=== PATIENT | female | born 1980 ===

== ENCOUNTER 2017-01-19 18:03 | Emergency (ER) | payer OTHER ==
[2017-01-19 18:29] VITALS: BP 127/82; PULSE 90; RESP 16; TEMP 98.2; O2SAT 100
--- NOTE | 2017-01-19 18:55 | ED PDOC ---
HPI: Head Injury Time Seen by Provider: 01/19/17 18:37 Chief Complaint (Nursing): Trauma Chief Complaint (Provider): Head injury History Per: Patient History/Exam Limitations: no limitations Injury Occurred (Timing): Hours Ago: (1) Onset/Duration Of Symptoms: Hrs (1) Patient States: Fell Striking Head Additional Complaint(s): The patient is a 36yo female, no pertinent past medical history, presents to the ED for evaluation of head injury sustained an hour prior to arrival. Patient reports she was on a ladder attempting to put something away and fell backwards, hitting the back of her head against a wall. Patient reports pain to the area of injury but denies loss of consciousness, nausea, vomiting, memory impairment, vision loss. She reports some dizziness which has improved. Patient denies taking any medications for her pain and at present, offers no additional medical complaints. PCP: Pankaj stewart Past Medical History Reviewed: Historical Data, Nursing Documentation, Vital Signs Vital Signs: Last Vital Signs Temp 98.2 F 01/19/17 18:26 Pulse 90 01/19/17 18:26 Resp 16 01/19/17 18:26 BP 127/82 01/19/17 18:26 Pulse Ox 100 01/19/17 18:26 - Medical History PMH: No Chronic Diseases - Surgical History Surgical History: (x1) - Family History Family History: States: No Known Family Hx - Living Arrangements Living Arrangements: Alone - Social History Current smoker - smoking cessation education provided: No Alcohol: Occasional Drugs: Denies - Allergies Allergies/Adverse Reactions: Allergies Allergy/AdvReac Type Severity Reaction Status Date / Time fexofenadine [From Indigo] AdvReac SHORTNESS Verified 01/19/17 18:26 OF BREATH Review of Systems ROS Statement: Except As Marked, All Systems Reviewed And Found Negative Eyes: Negative for: Vision Change Gastrointestinal: Negative for: Nausea, Vomiting Neurological: Positive for: Headache (s/p head injury with no LOC), Dizziness. Negative for: Confusion, Altered Mental Status Physical Exam - Reviewed Nursing Documentation Reviewed: Yes Vital Signs Reviewed: Yes - Physical Exam Appears: Positive for: Well, Non-toxic, No Acute Distress Head Exam: Positive for: NORMOCEPHALIC. Negative for: ATRAUMATIC (small contusion to right occipital scalp with mild tenderness to palpation. no open wounds noted) Skin: Positive for: Normal Color Eye Exam: Positive for: Normal appearance, EOMI, PERRL Cardiovascular/Chest: Positive for: Regular Rate, Rhythm Respiratory: Positive for: Normal Breath Sounds. Negative for: Respiratory Distress Neurologic/Psych: Positive for: Alert, vaccine customer representative II-XII (grossly intact), Oriented, Mood/Affect (appropriate), Gait (steady). Negative for: Motor/Sensory Deficits , Aphasia, Facial Droop - ECG O2 Sat by Pulse Oximetry: 100 (RA) Pulse Ox Interpretation: Normal Medical Decision Making Medical Decision Making: Time: 1849 Impression: Head injury with no LOC Plan: --PO tylenol -- Patient presents with head injury with no LOC, nausea, vomiting, vision changes or memory loss. Patient had dizziness but this is now resolving. Based on clinical presentation there is no acute indication for head CT. Risks and benefits of CT were discussed with patient and patient agrees with conservative management of head injury especially given risk of radiation exposure with CT. Patient was instructed to ice affected area, take tylenol prn pain and to monitor symptoms closely. She was instructed to return any time for any concerns or worsening symptoms, otherwise to follow up with PMD in 1-2 days. Scribe Attestation: Documented by Sarah Ivey acting as a scribe for Susie Sanchez PA-C Provider Attestation: All medical record entries made by the Scribe were at my direction and personally dictated by me. I have reviewed the chart and agree that the record accurately reflects my personal performance of the history, physical exam, medical decision making, and the department course for this patient. I have also personally directed, reviewed, and agree with the discharge instructions and disposition. Disposition - Clinical Impression Clinical Impression: Head injury, closed, without LOC - Patient ED Disposition Is Patient to be Admitted: No Counseled Patient/Family Regarding: Diagnosis, Need For Followup - Disposition Referrals: [facility] [Provider Group] Disposition: Routine/Home Disposition Time: 19:24 Condition: STABLE Additional Instructions: Apply ice to affected area. Tylenol every 4 hrs for pain as needed. Monitor symptoms closely and return to ED at any time if acutely worse, otherwise follow up with primary care doctor in 1-2 days. Instructions: Head Injury (ED) Forms: [employer] ([place])
== END 2017-01-19 19:45 | disposition home or self-care (01) ==
LOC: H.ER 18:03
DX: S09.90XA Unspecified injury of head, initial encounter (principal); W11.XXXA Fall on and from ladder, initial encounter; Y92.008 Other place in unspecified non-institutional (private) residence as the place of occurrence of the external cause